=== PATIENT | female | born 1950 | race Caucasian/White ===

== ENCOUNTER 2019-05-31 07:55 | Emergency (ER) | payer MEDICARE, BC ==
--- NOTE | 2019-05-31 08:07 | EDM.PDOC ---
ED HPI GENERAL MEDICAL PROBLEM - General Chief Complaint: Lower Extremity Injury/Pain Stated Complaint: AMBULANCE Time Seen by Provider: 05/31/19 08:01 Source of Information: Reports: Patient, Old Records, RN, RN Notes Reviewed History Limitations: Reports: No Limitations - History of Present Illness INITIAL COMMENTS - FREE TEXT/NARRATIVE: 69 year old female arrives from home by ambulance with reports of right buttock pain radiating to the right leg pain that began 2 days ago without any specific injury, fall, or activity. Pt reports history of sciatica. Patient reports that pain is worse with movement and better at rest. Patient reports that when these flare ups occur they usually only last a day and haven't lasted this long before. Patient reports taking Tylenol last night for pain. She did not take anything for pain today. Denies loss of bowel or bladder control, saddle area numbness, or motor weakness. Onset: Unknown/Unsure Duration: Day(s): (3-4), Constant, Getting Worse Location: Reports: Back, Lower Extremity, Left Quality: Reports: Same as Previous Episode, Sharp Severity: Severe Improves with: Reports: Immobilization, Rest Worsens with: Reports: Movement Associated Symptoms: Reports: No Other Symptoms Treatments DIALS INSPECTOR: Reports: Acetaminophen - Related Data Allergies Allergy/AdvReac Type Severity Reaction Status Date / Time Penicillins Allergy Cannot Verified 05/31/19 07:58 Remember Home Meds: Home Meds ARIPiprazole [Aripiprazole] 5 mg PO DAILY 05/31/19 [History] Hydroxychloroquine Sulfate 200 mg PO BID 05/31/19 [History] Levothyroxine [Synthroid] 50 mcg PO DAILY 05/31/19 [History] Propranolol [Inderal] 40 mg PO DAILY 05/31/19 [History] Sertraline HCl 50 mg PO DAILY 05/31/19 [History] Simvastatin 20 mg PO BEDTIME 05/31/19 [History] Warfarin Sodium [Jantoven] 5 mg PO ASDIRECTED 05/31/19 [History] amLODIPine [Norvasc] 10 mg PO DAILY 05/31/19 [History] levETIRAcetam [Keppra] 500 mg PO BID 05/31/19 [History] lisinopriL [Lisinopril] 40 mg PO DAILY 05/31/19 [History] Past Medical History Cardiovascular History: Reports: Blood Clots/VTE/DVT, High Cholesterol, Hypertension Respiratory History: Reports: Interstitial Lung Disease Musculoskeletal History: Reports: Back Pain, Chronic, SLE, Other (See Below) ( Spinal stenosis, DDD of lumbar spine) Neurological History: Reports: Seizure, Other (See Below) (Lumbar radiculopathy , Tremor) Psychiatric History: Reports: Depression, Emotional Problems Endocrine/Metabolic History: Reports: Hypothyroidism Social & Family History - Family History Family Medical History: Noncontributory - Living Situation & Occupation Living situation: Reports: Alone Occupation: Disabled Review of Systems - Review of Systems Review Of Systems: Comprehensive ROS is negative, except as noted in HPI. ED EXAM, GENERAL - Physical Exam Exam: See Below Exam Limited By: No Limitations General Appearance: Alert, WD/WN, No Apparent Distress Head: Atraumatic, Normocephalic Neck: Normal Inspection, Non-Tender, Full Range of Motion Respiratory/Chest: No Respiratory Distress Cardiovascular: Normal Peripheral Pulses GI/Abdominal: Normal Bowel Sounds, Soft, Non-Tender, No Organomegaly, No Distention, No Abnormal Bruit, No Mass (Female) Exam: Deferred Rectal (Female) Exam: Deferred Back Exam: Decreased Range of Motion (lumbar, L/S jct. due to pain), Paraspinal Tenderness (Lumbar, and left buttock). No: CVA Tenderness (L), CVA Tenderness ( R), Muscle Spasm, Vertebral Tenderness Extremities: Normal Inspection, Normal Range of Motion, Non-Tender, Normal Capillary Refill, No Pedal Edema Neurological: Alert, Oriented, Normal Cognition, Normal Gait, Normal Reflexes, No Motor/Sensory Deficits Psychiatric: Normal Mood Skin Exam: Warm, Dry, Intact, Normal Color, No Rash Course - Vital Signs Last Recorded V/S: Last Vital Signs Temp 97.1 F 05/31/19 07:55 Pulse 65 05/31/19 07:55 Resp 18 05/31/19 07:55 BP 137/67 05/31/19 07:55 Pulse Ox 100 05/31/19 07:55 - Orders/Labs/Meds Meds: Medications Discontinued Medications Generic Name Dose Route Start Last Admin Trade Name Freq PRN Reason Stop Dose Admin Hydrocodone Bitart/Acetaminophen 1 tab 05/31/19 08:18 05/31/19 08:28 [place] 325-10 Mg PO 05/31/19 08:19 1 tab ONETIME ONE Administration Dexamethasone 8 mg 05/31/19 08:17 05/31/19 08:28 Dexamethasone IM 05/31/19 08:18 8 mg ONETIME ONE Administration - Radiology Interpretation Free Text/Narrative:: Lumbar MRI report from 2013 reviewed by me. - Re-Assessments/Exams Free Text/Narrative Re-Assessment/Exam: 05/31/19 09:16 Pt has not new injury, or signs of neuro. deficit, therefore I do not find an indication for spinal imaging at this time. Departure - Departure Time of Disposition: 09:01 Disposition: Home, Self-Care 01 Condition: Good Clinical Impression: Left lumbar radiculopathy - Discharge Information *PRESCRIPTION DRUG MONITORING PROGRAM REVIEWED*: No *COPY OF PRESCRIPTION DRUG MONITORING REPORT IN PATIENT RULA: No Instructions: Lumbosacral Radiculopathy Forms: ED Department Discharge Additional Instructions: Rx: Decadron 4mg Rx: [place] (Hydrocodone) 5mg/325mg Follow up in clinic Tuesday or Tuesday to recheck INR (Coumadin/Warfarin) level and recheck back/leg pain with your doctor. Use a walker until the pain has improved and you can walk steadily. Sepsis Event Note - Evaluation Sepsis Screening Result: No Definite Risk - Focused Exam Vital Signs: Vital Signs Temp Pulse Resp BP Pulse Ox 05/31/19 07:55 97.1 F 65 18 137/67 100 Date Exam was Performed: 05/31/19 Time Exam was Performed: 09:07
[2019-05-31] MEDS ORDERED: Dexamethasone 4 MG/ML SDV IM ONE (08:17)
[2019-05-31] MEDS ORDERED: Acetaminophen/HYDROcodone 325-10 MG Tab PO ONE (08:18)
== END 2019-05-31 09:15 | disposition home or self-care (01) ==
LOC: DL.ED 07:55
DX: M54.16 Radiculopathy, lumbar region (principal); I10 Essential (primary) hypertension; E78.00 Pure hypercholesterolemia, unspecified; F32.9 Major depressive disorder, single episode, unspecified; G40.909 Epilepsy, unspecified, not intractable, without status epilepticus; E03.9 Hypothyroidism, unspecified; Z88.0 Allergy status to penicillin; Z79.899 Other long term (current) drug therapy; Z79.890 Hormone replacement therapy
CPT/HCPCS: 96372; 99283; A9270; J1100

== ENCOUNTER 2019-12-05 06:20 | Day surgery (SDC) | payer MEDICARE, BC ==
[~2019-12-05 06:20] MED LIST: Dextrose 5%-0.45% NaCl 1,000 ML IV SCH; Sodium Chloride 0.9% 10 ML Syringe FLUSH PRN
[2019-12-05] MEDS ORDERED: Midazolam 1 MG/ML 2 ML SDV IV ONE ×6 (06:21→07:48)
[2019-12-05] MEDS ORDERED: fentaNYL 100 MCG/2 ML SDV IV ONE ×3 (06:21→07:39)
[2019-12-05] MEDS ORDERED: fentaNYL 100 MCG/2 ML SDV ONE (06:53)
[2019-12-05] MEDS ORDERED: Midazolam 1 MG/ML 2 ML SDV ONE (06:53)
--- NOTE | 2019-12-05 08:24 | OR ---
DATE: 12/05/2019 PROCEDURE: Total colonoscopy. INSTRUMENT USED: PCF-H190DL Olympus video colonoscope. PREMEDICATIONS: Fentanyl 100 mcg intravenous, Versed 4 mg intravenous, nasal O2 cannula. The procedure was done under pulse oximetry, BP recording, and industrial hygenist. INDICATION: Screening colonoscopic examination is done for detection of any polypoid lesions and removal, endoscopic hemostasis therapy if needed. DESCRIPTION OF PROCEDURE: Initial rectal exam showed external hemorrhoids. Rigid anoscopy showed small internal hemorrhoids without bleeding from them. The colonoscope was passed with ease up to the ileocecal area. Photographs were taken of the normal-appearing cecum identified by landmarks of appendiceal orifice and double-bulged ileocecal folds. No bleeding was noted from any of the visualized areas at the commencement of the examination. The bowel preparation was found to be adequate, Paterson scale 3 in all the regions, total score 9. No stricture. No vascular ectasia. No large isolated ulcerations seen. No evidence of diffuse inflammatory bowel disease in the form of friability, contact bleeding, or ulcerations. No polyp or tumor mass identified. Probing the proximal sides of folds and flexures using adequate distention and clearing up the stool material, withdrawal of the scope was made, cecum to rectum time over 6 minutes. No bleeding was noted from any of the visualized areas at the completion of the examination. IMPRESSION: External and internal hemorrhoids. The patient tolerated the procedure well. [facility] /[id number]
== END 2019-12-05 09:59 | disposition home or self-care (01) ==
LOC: DL.ENDO 06:20
PROVIDERS: ATTEND Internal Medicine Gastroenterology
DX: Z12.11 Encounter for screening for malignant neoplasm of colon (principal); K64.8 Other hemorrhoids; K64.4 Residual hemorrhoidal skin tags; I10 Essential (primary) hypertension; E78.00 Pure hypercholesterolemia, unspecified; F32.9 Major depressive disorder, single episode, unspecified; M32.9 Systemic lupus erythematosus, unspecified; Z88.0 Allergy status to penicillin; Z86.718 Personal history of other venous thrombosis and embolism; Z90.710 Acquired absence of both cervix and uterus
CPT/HCPCS: G0121; J2250; J3010; J7042